=== PATIENT | female | born 1955 | race African-American/Black ===

== ENCOUNTER 2022-05-10 07:49 | Emergency (ER) | payer MEDICARE ==
[2022-05-10 09:22] LABS: #Lymphocytes 2.6 thou/uL (1.20-3.40); #Monocytes 0.8 thou/uL (0.11-0.59); %Basophils 0.5 % (0.0-1.0); %Eosinophils 0.2 % (0.0-10.0); %Lymphocytes 27.2 % (21.0-51.0); %Monocytes 8.9 % (0.0-10.0); %Neutrophils 63.2 % (42.0-75.0); Hemoglobin 11.3 g/dL (12.0-16.0); Mean Corpuscular HGB CONC 31.7 g/dL (32.0-36.0); Mean Corpuscular Hemoglobin 25.5 pg (27.0-31.0); Mean Corpuscular Volume 80.4 fL (78.0-98.0); Mean Platelet Volume 10.3 fL (7.4-10.4); Platelet Count 233 thou/uL (130-400); RBC Distribution Width 14.4 % (11.5-14.5); Red Blood Cell (RBC) Count 4.42 mill/uL (4.20-5.40); White Blood Cell (WBC) Count 9.5 thou/uL (4.8-10.8)
[2022-05-10 09:46] LABS: ALT (SGPT) 11 U/L (8-55); AST (SGOT) 13 U/L (5-34); Albumin 3.3 g/dL (3.4-4.8); Alkaline Phosphatase 65 U/L (40-110); Anion Gap 8 mmol/L (10-20); BUN (Urea Nitrogen) 17 mg/dL (9.8-20.1); Bilirubin, Total 0.2 mg/dL (0.2-1.2); Calc. Creatinine Clearance 0 mL/min (70-130); Calcium 8.7 mg/dL (7.8-10.44); Carbon Dioxide 28 mmol/L (23-31); Chloride 106 mmol/L (98-107); Estimated GFR 77; Glucose 97 mg/dL (80-115); Potassium 3.3 mmol/L (3.5-5.1); Protein, Total 8.3 g/dL (5.8-8.1); Sodium 139 mmol/L (136-145)
[2022-05-10] MEDS ORDERED: Morphine 4 MG/ML VIAL ONE ×2 (10:12→10:13)
== END 2022-05-10 10:21 | disposition home or self-care (01) ==
LOC: ERS 07:49
DX: M32.9 Systemic lupus erythematosus, unspecified (principal); I10 Essential (primary) hypertension
CPT/HCPCS: 36415; 80053; 85025; 86140; 93970; 96372; J2270

== ENCOUNTER 2023-04-21 21:52 | Observation (INO) | payer MEDICARE ==
[2023-04-22] MEDS ORDERED: Acetaminophen 325 MG TAB PO PRN (00:42)
[2023-04-22] MEDS ORDERED: Senokot S 8.6-50 MG TAB PO PRN (00:42)
[2023-04-22] MEDS: traZODone HCl 50 MG TAB PO PRN ×2 (01:16→21:13)
[2023-04-22 05:20] LABS: #Eosinphils 0.1 thou/uL (0.0-0.7); #Monocytes 0.8 thou/uL (0.11-0.59); #Neutrophils 3.7 thou/uL (1.40-6.50); %Basophils 0.4 % (0.0-1.0); %Lymphocytes 34.8 % (21.0-51.0); %Monocytes 11.5 % (0.0-10.0); %Neutrophils 52.2 % (42.0-75.0); Hemoglobin 11.1 g/dL (12.0-16.0); Mean Corpuscular HGB CONC 31.7 g/dL (32.0-36.0); Mean Corpuscular Hemoglobin 25.8 pg (27.0-31.0); Mean Corpuscular Volume 81.2 fl (78.0-98.0); Mean Platelet Volume 12.5 fL (7.4-10.4); Platelet Count 189 10x3/uL (130-400); RBC Distribution Width 15.2 % (11.5-14.5); Red Blood Cell (RBC) Count 4.31 mill/uL (4.20-5.40); White Blood Cell (WBC) Count 7.1 10x3/uL (4.8-10.8)
[2023-04-22 05:43] LABS: Anion Gap 9 mmol/L (10-20); BUN (Urea Nitrogen) 7 mg/dL (9.8-20.1); Calc. Creatinine Clearance 87 mL/min (70-130); Calcium 8.9 mg/dL (7.8-10.44); Carbon Dioxide 26 mmol/L (23-31); Chloride 108 mmol/L (98-107); Estimated GFR 82; Glucose 91 mg/dL (80-115); Potassium 3.6 mmol/L (3.5-5.1); Sodium 139 mmol/L (136-145)
[2023-04-22] MEDS: Hydroxychloroquine Sulfate 200 MG TAB PO SCH (09:34)
[2023-04-22] MEDS: Pilocarpine 5 MG TAB PO SCH ×3 (09:34→21:07)
[2023-04-22] MEDS: Lisinopril 20 MG TAB PO SCH (09:34)
[2023-04-22] MEDS: Sertraline 100 MG TAB PO SCH (09:35)
[2023-04-22] MEDS: dilTIAZem CD 240 MG CAP PO SCH (09:35)
[2023-04-22] MEDS: Famotidine 20 MG TAB PO SCH ×2 (09:35→21:08)
[2023-04-22] MEDS: Furosemide 20 MG TAB PO SCH (09:36)
[2023-04-22] MEDS ORDERED: Magnevist 469MG/ML 20 ML VIAL ONE (12:35)
[2023-04-22 14:26] VITALS: BMI 34.2
[2023-04-22] MEDS ORDERED: hydrALAZINE 20 MG/ML VIAL SLOW IVP SCH (15:00)
[2023-04-22] MEDS ORDERED: ALPRAZolam 0.5 MG TAB PO PRN (17:46)
[2023-04-22] MEDS ORDERED: traZODone HCl 50 MG TAB PO SCH (21:00)
[2023-04-22] MEDS: hydrALAZINE 25 MG TAB PO SCH (21:08)
[2023-04-23 08:13] VITALS: BP 148/74; TEMP 98.1
[2023-04-23] MEDS: Furosemide 20 MG TAB PO SCH (08:20)
[2023-04-23] MEDS: hydrALAZINE 25 MG TAB PO SCH (08:21)
[2023-04-23] MEDS: Hydroxychloroquine Sulfate 200 MG TAB PO SCH (08:21)
[2023-04-23] MEDS: dilTIAZem CD 240 MG CAP PO SCH (08:21)
[2023-04-23] MEDS: Sertraline 100 MG TAB PO SCH (08:22)
[2023-04-23] MEDS: Famotidine 20 MG TAB PO SCH (08:23)
[2023-04-23] MEDS: Lisinopril 20 MG TAB PO SCH (08:23)
[2023-04-23] MEDS: Pilocarpine 5 MG TAB PO SCH (08:24)
[2023-04-23] MEDS ORDERED: Non-Formulary Item 1 EACH (Lisinopril [Zestril] 40 MG Tablet) PO SCH (09:00)
[2023-04-23] MEDS ORDERED: SERTRALINE HCL 200 MG PO SCH (09:00)
== END 2023-04-23 12:05 | disposition home or self-care (01) ==
LOC: 2SW 04-22 00:15
PROVIDERS: ADMIT Student in an Organized Health Care Education/Training Program; ATTEND Family Medicine
DX: M35.00 Sjogren syndrome, unspecified (principal); I16.0 Hypertensive urgency; M32.9 Systemic lupus erythematosus, unspecified; F32.A Depression, unspecified; I10 Essential (primary) hypertension; I45.81 Long QT syndrome; K62.89 Other specified diseases of anus and rectum; Z88.5 Allergy status to narcotic agent; Z88.6 Allergy status to analgesic agent; Z88.1 Allergy status to other antibiotic agents; Z88.8 Allergy status to other drugs, medicaments and biological substances; Z79.899 Other long term (current) drug therapy; Z79.82 Long term (current) use of aspirin
CPT/HCPCS: 70543; 80048; 85025; 96374; G0378 ×2; J0360; 36415; A9579